=== PATIENT | female | born 1980 | race African-American/Black ===

== ENCOUNTER 2019-01-08 17:25 | Inpatient (IN) | payer MEDICAID ==
[~2019-01-08] VITALS: Ht 170.2 cm; Wt 113.4 kg
[2019-01-08 17:31] VITALS: BP 104/62
--- NOTE | 2019-01-08 17:35 | NUR ---
38F C/O 9/10 CONSTANT CP DESCRIBED "SQUEEZING" AND RADIATING TO LEFT SHOULDER AND LEFT NECK. PATIENT WAS PREPARING A MEAL WHEN IT STARTED. STATES SLIGHT SOB, SLIGHT [place], LIGHTHEADED. DENIES VOMITING AND DIAPHORESIS. HX DEPRESSION. NEVER EXPERIENCED THIS BEFORE. HX: DEPRESSION MEDS: NONE ALL: SHELLFISH
--- NOTE | 2019-01-08 17:40 | NUR ---
EMT AT BEDSIDE FOR EKG
--- NOTE | 2019-01-08 17:47 | NUR ---
DR. GARCIA AT BEDSIDE
[2019-01-08] MEDS ORDERED: fentaNYL 0.05 MG/ML VIAL IVP ONE (17:55)
[2019-01-08] MEDS ORDERED: NITROGLYCERIN 2% 1 GM PKT TP ONE (17:55)
[2019-01-08] MEDS ORDERED: ONDANSETRON 4 MG/2 ML VIAL IVP ONE (17:55)
[2019-01-08 18:27] LABS: BASOPHILS % (AUTO) 0.2 % (0.0-2.0); EOSINOPHILS # (AUTO) 0.2 K/uL (0-0.4); EOSINOPHILS % (AUTO) 2.5 % (0.0-4.0); HEMATOCRIT 35.1 % (36-48); HEMOGLOBIN 11.3 g/dL (12.0-16.0); LYMPHOCYTES # (AUTO) 2.5 K/uL (2.5-16.5); LYMPHOCYTES % (AUTO) 28.9 % (20.5-51.1); MEAN CORPUSCULAR HEMOGLOBIN 28 pg (27-31); MEAN CORPUSCULAR HGB CONC 32 g/dL (33-37); MEAN CORPUSCULAR VOLUME 85.6 fL (80-94); MONOCYTES # (AUTO) 0.7 K/uL (0.8-1.0); MONOCYTES % (AUTO) 7.6 % (1.7-9.3); NEUTROPHILS # (AUTO) 5.3 K/uL (1.8-7.7); NEUTROPHILS % (AUTO) 60.8 % (42.2-75.2); PLATELET COUNT (AUTO) 310 K/uL (140-450); WHITE BLOOD COUNT (AUTO) 8.7 K/uL (4.8-10.8)
[2019-01-08 18:37] LABS: ANION GAP 11.2 (8-16); CARBON DIOXIDE 30.3 mmol/L (21-32); POTASSIUM 3.5 mmol/L (3.5-5.1)
[2019-01-08 18:43] LABS: ALBUMIN 3.4 g/dL (3.4-5.0); TOTAL BILIRUBIN 0.2 mg/dL (0.0-1.0)
--- NOTE | 2019-01-08 19:14 | NUR ---
REPORT GIVEN TO MELISSA GUZMAN VSS.
[2019-01-08] MEDS ORDERED: HYDROcodone/APAP 7.5/325 MG 1 TAB PO PRN (19:20)
[2019-01-08] MEDS ORDERED: NITROGLYCERIN 0.4 MG TAB SL ONE (19:20)
[2019-01-08] MEDS ORDERED: ONDANSETRON 4 MG/2 ML VIAL IVP PRN (19:20)
[2019-01-08 19:42] LABS: APPEARANCE,URINE HAZY (CLEAR); BILIRUBIN,URINE NEGATIVE (NEGATIVE); BLOOD, URINE NEGATIVE (NEGATIVE); COLOR,URINE YELLOW (YELLOW); LEUKOCYTE ESTERASE ,URINE 2+ (NEGATIVE); NITRITE, URINE NEGATIVE (NEGATIVE); UGLUCOSE NEGATIVE (NEGATIVE)
[2019-01-08 19:46] LABS: BARBITURATE, URINE NEG. ng/ml (NEG <=200); BENZODIAZEPINE, URINE NEG. ng/mL (NEG <=200); CANNABINOID, URINE POS. ng/mL (NEG <=50); COCAINE, URINE NEG. ng/mL (NEG <=300); OPIATE, URINE NEG. ng/mL (NEG <=2000); PHENCYCLIDINE SCREEN,URINE NEG. ng/mL (NEG <=25)
[2019-01-08 19:50] LABS: PROTHROMBIN TIME 9.4 secs (10.8-13.4)
[2019-01-08 19:54] LABS: RBC,URINE 0-5 /HPF (0-5); WBC,URINE >25 (MANY) /HPF (0-5)
[2019-01-08 20:00] LABS: FREE T4 (FREE THYROXINE) 0.93 ng/dL (0.76-1.46); MAGNESIUM 1.7 mg/dL (1.8-2.4); PHOSPHORUS 2.7 mg/dL (2.5-4.9); THYROID STIMULATING HORMONE 0.72 uIU/mL (0.34-3.74)
--- NOTE | 2019-01-08 20:10 | NUR ---
Patient will be admitted to care of DR. GRIFFITH. Admited to [facility]. Will go to room 105B. Belongings list completed. Report to IAM RN AT BEDSIDE.
[2019-01-08 20:15] VITALS: BP 102/68
[2019-01-08] MEDS ORDERED: MAGNESIUM OXIDE 400 MG TAB PO ONE (20:15)
--- NOTE | 2019-01-08 20:15 | NUR ---
REPORT RECEIVED FROM ER NURSE, BHAVANA. PT AWAKE, ALERT AND ORIENTED X4. ABLE TO ANSWER QUESTIONS AND FOLLOW COMMANDS. VISIBLE CHEST RISE AND FALL ON ROOM AIR WITH NO VISIBLE DISTRESS. PT HAS LEFT A/C 18G SALINE LOCKED, INTACT AND PATENT. SKINS INTACT. PT ABLE TO AMBULATE TO BATHROOM, STEADY GAIT. SAFETY MEASURES IN PLACE. PT ORIENTED WEATHERSTRIP MACHINE OPERATOR LIGHT. CALL LIGHT WITHIN REACH. WILL CONTINUE TO MONITOR.
[2019-01-08] MEDS: NACL 0.9% 1,000 ML IV SCH (21:42)
[2019-01-08] MEDS: DOCUSATE SODIUM 100 MG GELCAP PO SCH (21:42)
--- NOTE | 2019-01-08 21:42 | NUR ---
MEDICATION ADMINISTERED. PT TOLERATED WELL.
[2019-01-08] MEDS ORDERED: cefTRIAXone 1,000 MG VIAL ONE (21:44)
[2019-01-08] MEDS: ACETAMINOPHEN 325 MG TAB PO PRN (22:21)
--- NOTE | 2019-01-08 22:21 | NUR ---
PT GIVEN TYLENOL FOR 3/10 HEADACHE.
[2019-01-08] MEDS ORDERED: LORazepam 1 MG TAB PO ONE (22:30)
[2019-01-09] VITALS (7 sets, daily range): BP systolic 91–132; BP diastolic 57–87
[2019-01-09] MEDS ORDERED: NITROGLYCERIN 0.4 MG TAB SL ONE
--- NOTE | 2019-01-09 | NUR ---
VITALS TAKEN. PT SITTING UP IN BED TALKING ON PHONE. NO C/O DISCOMFORT. PT BROUGHT SANDWICH PER REQUEST. CALL LIGHT WITHIN REACH.
--- NOTE | 2019-01-09 04:15 | NUR ---
VITALS TAKEN. PT RESTING WITH EYES CLOSED, EASILY AWAKEN BY VOICE. NO VISIBLE SIGNS OF DISTRESS. NO C/O DISCOMFORT. CALL LIGHT WITHIN REACH.
--- NOTE | 2019-01-09 06:30 | NUR ---
PT ACCIDENTALLY REMOVED IV FROM A/C. NEW IV ACCESS STARTED ON LEFT HAND 22G.
[2019-01-09] MEDS: NACL 0.9% 1,000 ML IV SCH ×2 (06:35→20:41)
[2019-01-09 07:29] LABS: BASOPHILS % (AUTO) 0.4 % (0.0-2.0); EOSINOPHILS # (AUTO) 0.2 K/uL (0-0.4); EOSINOPHILS % (AUTO) 2.8 % (0.0-4.0); HEMATOCRIT 33.5 % (36-48); HEMOGLOBIN 10.8 g/dL (12.0-16.0); LYMPHOCYTES # (AUTO) 2.7 K/uL (2.5-16.5); LYMPHOCYTES % (AUTO) 33.7 % (20.5-51.1); MEAN CORPUSCULAR HEMOGLOBIN 28 pg (27-31); MEAN CORPUSCULAR HGB CONC 32 g/dL (33-37); MEAN CORPUSCULAR VOLUME 85.6 fL (80-94); MONOCYTES # (AUTO) 0.6 K/uL (0.8-1.0); MONOCYTES % (AUTO) 7.9 % (1.7-9.3); NEUTROPHILS # (AUTO) 4.4 K/uL (1.8-7.7); NEUTROPHILS % (AUTO) 55.2 % (42.2-75.2); PLATELET COUNT (AUTO) 295 K/uL (140-450); RED BLOOD CELL COUNT(AUTO) 3.92 MIL/uL (4.20-5.40); RED CELL DISTRIBUTION WIDTH 14.9 % (11.6-13.7)
--- NOTE | 2019-01-09 07:30 | NUR ---
ENDORSED PT TO AM NURSE. PT IN STABLE CONDITION.
--- NOTE | 2019-01-09 07:31 | NUR ---
RECEIVED BEDSIDE REPORT FROM ELEMENT WINDING MACHINE TENDER RN, SEPTEMBER. PATIENT RESTING IN BED. C/O SQUEEZING CHEST PAIN 6/10 RADIATING TO LEFT SHOULDER AND JAW. WILL NOTIFY DOCTOR. VITALS STABLE. NO SIGNS OF RESPIRATORY DISTRESS. SAFETY PRECAUTIONS IN PLACE. INFORMED PATIENT THAT I WILL SPEAK TO DOCTOR ABOUT ADDITIONAL MEDICATIONS AND TO CALL IF PAIN WORSENS OR SHE HAS ANY TROUBLE BREATHING.
[2019-01-09 07:50] LABS: ANION GAP 8.9 (8-16); CARBON DIOXIDE 29.1 mmol/L (21-32); CREATININE 0.9 mg/dL (0.6-1.3)
[2019-01-09 07:58] LABS: MAGNESIUM 1.9 mg/dL (1.8-2.4); PHOSPHORUS 3.3 mg/dL (2.5-4.9)
[2019-01-09 08:01] LABS: CHOL/HDL RATIO 2.4 (1-4.5)
--- NOTE | 2019-01-09 08:40 | NUR ---
PATIENT HAS BEEN SCREENED AND CATEGORIZED MODERATE NUTRITION RISK. PATIENT WILL BE SEEN WITHIN 3-5 DAYS OF ADMISSION. 01/11/19 01/13/[address]
[2019-01-09] MEDS ORDERED: NITROGLYCERIN 0.4 MG TAB SL PRN (08:55)
[2019-01-09] MEDS: METOPROLOL 25 MG TAB PO SCH ×3 (09:00→20:36)
[2019-01-09] MEDS: NICOTINE TRANSD SYS 7 MG/24 HR PATCH TD SCH (09:00)
[2019-01-09] MEDS: LISINOPRIL 5 MG TAB PO SCH ×2 (09:00→11:33)
[2019-01-09] MEDS: ACETAMINOPHEN 325 MG TAB PO PRN (09:16)
[2019-01-09] MEDS: ECOTRIN 81 MG TABEC PO SCH (09:17)
[2019-01-09] MEDS: DOCUSATE SODIUM 100 MG GELCAP PO SCH ×2 (09:17→20:35)
[2019-01-09] MEDS: ASCORBIC ACID 500 MG TAB PO SCH (09:17)
[2019-01-09] MEDS: LACTOBACILLUS RHAMNOSUS GG 1 EACH CAP PO SCH (09:17)
--- NOTE | 2019-01-09 09:31 | NUR ---
ADMINISTERED SCHEDULED MEDICATIONS EXCEPT FOR BLOOD PRESSURE MEDICATIONS. PATIENT DENIES HISTORY OF HYPERTENSION AND HAS HAD BLOOD PRESSURE WITHIN NORMAL LIMITS WITH OCCASIONAL LOW BP. WILL CONFIRM WITH DOCTOR REGARDING NEED FOR ANTIHYPERTENSIVES. ALSO ADMINISTERED SL NITROGLYCERIN FOR CHEST PAIN RATED 6/10 RADIATING TO LEFT SHOULDER AND JAW, PATIENT STATES THAT THE NITROGLYCERIN GIVES HER A HEADACHE. ADMINISTERED TYLENOL FOR ASSOCIATED HEADACHE PER PATIENT REQUEST.
--- NOTE | 2019-01-09 11:34 | NUR ---
ADMINISTERED LISINOPRIL AND METOPROLOL. SPOKE TO DOCTOR ABOUT BLOOD PRESSURE MEDICATIONS. PER DOCTOR GIVE PER PROTOCOL. EDUCATED PATIENT ON MEDICATIONS AND INDICATIONS FOR USE. BLOOD PRESSURE WITHIN NORMAL LIMITS. WILL CONTINUE TO MONITOR.
--- NOTE | 2019-01-09 13:45 | NUR ---
PATIENT RESTING IN BED, TALKING ON PHONE. NO SIGNS OF DISTRESS. NO C/O PAIN AT THIS TIME. CALL LIGHT IN REACH. WILL CONTINUE TO MONITOR.
--- NOTE | 2019-01-09 15:20 | NUR ---
PATIENT SITTING UP IN CHAIR, TALKING ON PHONE. NO C/O PAIN AT THIS TIME. WILL CONTINUE TO MONITOR.
--- NOTE | 2019-01-09 17:45 | NUR ---
PATIENT REQUESTING TO AMBULATE OUTSIDE. EDUCATED PATIENT ON HOSPITAL POLICY. PATIENT VERBALIZED UNDERSTANDING. SAFETY PRECAUTIONS IN PLACE. WILL CONTINUE TO MONITOR.
--- NOTE | 2019-01-09 19:20 | NUR ---
GAVE REPORT TO MECHANICAL SYSTEMS ENGINEER RN, KHADRA. PATIENT IN STABLE CONDITION.
--- NOTE | 2019-01-09 19:25 | NUR ---
RECEIVED FROM AM RN IN BED IN SITTING UP POSITION AND ON CELL PHONE WATCHING SOMETHING . ABLE TO VERBALIZE NEEDS WELL. CALL LIGHT WITH N REACH AND NO PAIN COMPLAINTS DONE AT THIS TIME. PT. IS ON TELEMETRY MONITORING. CARE PLANS FOR THE NIGHT DISCUSSED WITH HER. IVF SITE INTACT AND NO INFILTRATION.
[2019-01-09] MEDS ORDERED: ZOLPIDEM 5 MG TAB PO PRN (21:30)
--- NOTE | 2019-01-09 22:08 | NUR ---
PT. REQUESTED FOR SLEEPING PILL AND MEDICATED WITH AMBIEN 5 MG P.O. ORDERED BY RESIDENT MD. ABLE TO VERBALIZE NEEDS WELL.
--- NOTE | 2019-01-09 23:35 | NUR ---
PT. SLEEPING AT THIS TIME. WAKES UP EASILY WHEN TOUCHED. NO COMPLAINTS DONE. CALL LIGHT WITH IN REACH.
--- NOTE | 2019-01-10 02:03 | NUR ---
PT. AWAKE AND WENT TO RESTROOM. NO COMPLAINTS DONE. CALL LIGHT WITH IN REACH. WENT BACK TO SLEEP AFTER.
[2019-01-10] MEDS: NACL 0.9% 1,000 ML IV SCH (02:35)
[2019-01-10 04:00] VITALS: BP 110/76
--- NOTE | 2019-01-10 04:22 | NUR ---
SLEEPING WELL. NO RESTLESSNESS. CALL LIGHT WITH IN REACH.
--- NOTE | 2019-01-10 06:17 | NUR ---
PT. WOKE UP WELL THIS AM. NO COMPLAINTS OF ANY CHEST PAIN COMPLAINTS. PT. AWAKE AND ALERT AT THIS TIME. AM PERSONAL HYGIENE RENDERED. CARRIES A CONVERSATION WITH ME AND LOGISTICS ASSISTANT WELL. WILL ENDORSE TO THE NEXT AM RN FOR CONTINUITY OF CARE.
--- NOTE | 2019-01-10 07:05 | NUR ---
RECEIVED REPORT FROM ONCOLOGY TRANSPLANT NETWORK MANAGER NURSE. PT AAOX4, NO C/O PAIN OR SOB AT THIS TIME. RESPIRATIONS EVEN AND UNLABORED ON RA. BOWEL SOUNDS ACTIVE, LBM 01/07. PT ON HOSE SUSPENDER CUTTER. NO EDEMA TO EXTREMITIES NOTED. SKIN COLOR IS APPROPRIATE TO ETHNICITY, INTEGRITY IS INTACT, WARM TO TOUCH. REVIEWED POC WITH PT, PT VERBALIZED UNDERSTANDING. SAFETY MEASURES IN PLACE, CALL LIGHT WITHIN REACH. WILL CONTINUE TO MONITOR. Addendum: 01/10/19 at 1250 by Taylor Rowley RN ADDITION IV ON LT HAND 22 GA RUNNING IVF PER ORDER, DRESSING, CLEAN, DRY AND INTACT.
[2019-01-10 07:19] LABS: BASOPHILS % (AUTO) 0.5 % (0.0-2.0); EOSINOPHILS # (AUTO) 0.2 K/uL (0-0.4); EOSINOPHILS % (AUTO) 2.9 % (0.0-4.0); HEMOGLOBIN 11.4 g/dL (12.0-16.0); LYMPHOCYTES % (AUTO) 35.3 % (20.5-51.1); MEAN CORPUSCULAR HEMOGLOBIN 28 pg (27-31); MEAN CORPUSCULAR HGB CONC 33 g/dL (33-37); MEAN CORPUSCULAR VOLUME 85.5 fL (80-94); MONOCYTES # (AUTO) 0.6 K/uL (0.8-1.0); MONOCYTES % (AUTO) 7.2 % (1.7-9.3); NEUTROPHILS # (AUTO) 4.6 K/uL (1.8-7.7); NEUTROPHILS % (AUTO) 54.1 % (42.2-75.2); PLATELET COUNT (AUTO) 305 K/uL (140-450); RED CELL DISTRIBUTION WIDTH 15.2 % (11.6-13.7); WHITE BLOOD COUNT (AUTO) 8.5 K/uL (4.8-10.8)
[2019-01-10 07:35] LABS: ANION GAP 10.3 (8-16); CARBON DIOXIDE 26.6 mmol/L (21-32); CREATININE 0.8 mg/dL (0.6-1.3); POTASSIUM 3.9 mmol/L (3.5-5.1)
[2019-01-10 07:43] LABS: MAGNESIUM 1.8 mg/dL (1.8-2.4); PHOSPHORUS 2.7 mg/dL (2.5-4.9)
[2019-01-10 08:00] VITALS: BP 134/86
[2019-01-10] MEDS ORDERED: FERROUS SULFATE 325 MG TABEC PO SCH (08:00)
[2019-01-10] MEDS: ECOTRIN 81 MG TABEC PO SCH (08:09)
[2019-01-10] MEDS: DOCUSATE SODIUM 100 MG GELCAP PO SCH (08:09)
[2019-01-10] MEDS: LISINOPRIL 5 MG TAB PO SCH (08:10)
[2019-01-10] MEDS: LACTOBACILLUS RHAMNOSUS GG 1 EACH CAP PO SCH (08:10)
[2019-01-10] MEDS: ASCORBIC ACID 500 MG TAB PO SCH (08:10)
[2019-01-10] MEDS: NICOTINE TRANSD SYS 7 MG/24 HR PATCH TD SCH (08:10)
--- NOTE | 2019-01-10 08:10 | NUR ---
PT WILL BE DISCHARGED TODAY. PT PREFERRED FOR HEPARIN TO BE HELD D/T MORE FREQUENT ACTIVITY AFTER DISCHARGE.
--- NOTE | 2019-01-10 08:50 | NUR ---
DR. JONES AT BEDSIDE DISCUSSING POC WITH PT, PT VERBALIZED UNDERSTANDING. WILL CONTINUE TO MONITOR.
--- NOTE | 2019-01-10 10:45 | NUR ---
PT REQUESTED FOR IV TO BE DISCONTINUE NOW. CANNULA INTACT, APPLIED PRESSURE, NO ACTIVE BLEEDING NOTED. WILL CONTINUE TO MONITOR.
--- NOTE | 2019-01-10 11:00 | NUR ---
PT HAS BEEN DISCHARGED. ALL PAPERWORK SIGNED AND ALL QUESTIONS ANSWERED. ALL BELONGINGS ARE IN PT POSSESSION. WRISTBANDS AND TELE MONITOR REMOVED. OFFERED PT WHEELCHAIR, BUT PT REFUSED. PATIENT AMBULATED OUT OF UNIT WITH STEADY GAIT, ASSISTED BY NURSE AND FRIEND. PT IS IN STABLE CONDITION AT THIS TIME.
[2019-01-10 12:12] LABS: FOLIC ACID 14.3 ng/mL (>3.0)
== END 2019-01-10 11:00 | disposition home or self-care (01) | DRG 243 ==
LOC: MED 17:25 → MTU 19:20
PROVIDERS: ADMIT General Practice; ATTEND General Practice
DX: K21.9 Gastro-esophageal reflux disease without esophagitis (principal); E83.42 Hypomagnesemia; M94.0 Chondrocostal junction syndrome [Tietze]; E66.9 Obesity, unspecified; N39.0 Urinary tract infection, site not specified; F15.10 Other stimulant abuse, uncomplicated; F32.9 Major depressive disorder, single episode, unspecified; D64.9 Anemia, unspecified; E86.0 Dehydration; F12.10 Cannabis abuse, uncomplicated; Z68.39 Body mass index [BMI] 39.0-39.9, adult; Z87.891 Personal history of nicotine dependence; Z82.49 Family history of ischemic heart disease and other diseases of the circulatory system; Z90.49 Acquired absence of other specified parts of digestive tract; Z91.013 Allergy to seafood
CPT/HCPCS: 36415; 71045; 80048; 80053; 80305; 81001; 81025; 82150; 82607; 82728; 82746; 83036; 83540; 83690; 83735; 83880; 84100; 84439; 84443; 84484; 85025; 85045; 85610; 85730; 87081; 87086; 87186; 93005; 96374; 96375; 99285; J0696; J1644; J2405; J3010; J7030; J7060